=== PATIENT | female | born 1975 | race Caucasian/White ===

== ENCOUNTER 2016-08-17 11:36 | Emergency (ER) | payer OTHER ==
[~2016-08-17] VITALS: Ht 167.6 cm; Wt 68.0 kg
[2016-08-17 12:43] VITALS: BP 103/67
--- NOTE | 2016-08-17 13:42 | PHYS DOC ---
Past Medical History Past Medical History: No Pertinent History Past Surgical History: Cholecystectomy, Tonsillectomy, Tubal ligation, Other Additional Past Surgical Histo: ADENOIDECTOMY, EAR,EYE Alcohol Use: Occasionally Drug Use: None Adult General Chief Complaint Chief Complaint: LOWER BACK PAIN OR INJURY [facility] HPI Patient is a 41 year old female with history of constipation who presents today with mild bilateral mid and low back pain that has been going on for the last 3 days. Patient states she had MiraLAX a couple days ago and had a bowel movement today. Patient states the pain radiates from the lower back to her neck. Patient denies any injuries. Patient denies any loss of bowel bladder function or the pain radiating to bilateral lower extremities. Patient was in the ED on August 09, 2016 with some complain. Review of Systems Review of Systems Constitutional: Denies fever or chills [] Eyes: Denies change in visual acuity, redness, or eye pain [] HENT: Denies nasal congestion or sore throat [] Respiratory: Denies cough or shortness of breath [] Cardiovascular: No additional information not addressed in HPI [] GI: Denies abdominal pain, nausea, vomiting, bloody stools or diarrhea [] : Denies dysuria or hematuria [] Musculoskeletal: back pain Integument: Denies rash or skin lesions [] Neurologic: Denies headache, focal weakness or sensory changes [] Endocrine: Denies polyuria or polydipsia [] Current Medications Current Medications Current Medications Medications (Trade) Dose Ordered Sig/Enzo Start Time Stop Time Status Last Admin Dose Admin Ketorolac Tromethamine (Toradol Im) 60 mg 1X ONCE 08/17/16 14:00 08/17/16 14:03 DC 08/17/16 14:34 60 MG Magnesium Citrate (Citroma) 296 ml 1X ONCE 08/17/16 14:00 08/17/16 14:03 DC 08/17/16 14:33 296 ML Morphine Sulfate 5 mg 1X ONCE 08/17/16 14:00 08/17/16 14:03 DC 08/17/16 14:34 5 MG Orphenadrine Citrate (Norflex) 60 mg 1X ONCE 08/17/16 14:00 08/17/16 14:03 DC 08/17/16 14:33 60 MG Allergies Allergies Allergies Coded Allergies Type Severity Reaction Last Updated Verified No Known Drug Allergies 03/24/15 No Physical Exam Physical Exam Constitutional: Well developed, well nourished, no acute distress, non-toxic appearance. [] HENT: Normocephalic, atraumatic, bilateral external ears normal, oropharynx moist, no oral exudates, nose normal. [] Eyes: PERRLA, EOMI, conjunctiva normal, no discharge. [] Neck: Normal range of motion, no tenderness, supple, no stridor. [] Cardiovascular:Heart rate regular rhythm, no murmur [] Lungs & Thorax: Bilateral breath sounds clear to auscultation [] Abdomen: Bowel sounds normal, soft, no tenderness, no masses, no pulsatile masses. [] Skin: Warm, dry, no erythema, no rash. [] Back: Diffuse tenderness to paraspinal muscles of thoracic and lumbar spine, no midline tenderness, no CVA tenderness. [] Extremities: No tenderness, no cyanosis, no clubbing, ROM intact, no edema. [] Neurologic: Alert and oriented X 3, normal motor function, normal sensory function, no focal deficits noted. [] Psychologic: Affect normal, judgement normal, mood normal. [] Current Patient Data Vital Signs Vital Signs Date Time Temp Pulse Resp B/P Pulse Ox O2 Delivery O2 Flow Rate FiO2 08/17/16 14:34 Room Air 08/17/16 12:43 98.4 84 18 103/67 98 98.4 Lab Values Laboratory Tests Test 08/17/16 12:13 08/17/16 12:55 POC Urine HCG, Qualitative Hcg negative (Negative) Urine Collection Type Unknown Urine Color Yellow Urine Clarity Clear Urine pH 7.0 Urine Specific Duncan 1.010 Urine Protein Negativemg/dL (NEG-TRACE) Urine Glucose (UA) Negativemg/dL (NEG) Urine Ketones (Stick) Negativemg/dL (NEG) Urine Blood Negative (NEG) Urine Nitrite Negative (NEG) Urine Bilirubin Negative (NEG) Urine Urobilinogen Dipstick 0.2mg/dL (0.2 mg/dL) Urine Leukocyte Esterase Negative (NEG) Urine RBC 0/HPF (0-2) Urine WBC Occ/HPF (0-4) Urine Squamous Epithelial Cells Mod/LPF Urine Bacteria Moderate/HPF (0-FEW) EKG EKG [] Radiology/Procedures Radiology/Procedures [] Course & Med Decision Making Course & Med Decision Making Pertinent Labs and Imaging studies reviewed. (See chart for details) Patient is in the ED complaining of low back pain radiating to her neck. Patient denies any known injury. She was in the ED on August 09, 2016 with the same complaint, she was discharged with Medrol Dosepak naproxen and Flexeril. Thoracic and lumbar spine x-rays interpreted by radiologist are negative for any acute findings. Patient was discharged with Ultram and Robaxin. Instructed to take mag citrate and MiraLAX for constipation. Instructed that follow-up with her own doctor in 1-2 weeks. Dragon Disclaimer Dragon Disclaimer This electronic medical record was generated, in whole or in part, using a voice recognition dictation system. Departure Departure Impression: Primary Impression: Lumbago with sciatica, left side Additional Impressions: Thoracic back pain Constipation Disposition: 01 HOME, SELF-CARE Condition: STABLE Referrals: NO PCP (PCP) Follow-up with a doctor from the list provided in one week Patient Instructions: Back Pain, Adult, Constipation, Adult Additional Instructions: You were seen for back pain and constipation. Please use MiraLAX daily to prevent constipation and take magnesium citrate as needed for constipation. Avoid taking narcotics because they increase your risk of constipation. Increase your water intake to 64 ounces a day and fiber intake too. See your doctor in one week. Scripts Tramadol Hcl (Ultram)50 Mg Tablet1 Tab PO Q6HRS #20 TAB Prov:AAKASH HIGGINBOTHAM PAINT GR[employer]ER 08/17/16 Methocarbamol (Robaxin)500 Mg Tablet1 Tab PO BID #20 TAB Prov:AAKASH HIGGINBOTHAM [employer] GR[employer]ER 08/17/16 Problem Qualifiers Additional Impressions: Thoracic back pain Chronicity: acute Back pain laterality: bilateral Qualified Code: M54.6 - Pain in thoracic spine Constipation Constipation type: unspecified constipation type Qualified Code: K59.00 - Constipation, unspecified AAKASH HIGGINBOTHAM [employer] GR[employer]ER Aug 17, 2016 13:42
[2016-08-17 13:44] LABS: BILIRUBIN,URINE NEGATIVE (NEG); GLUCOSE,URINE NEGATIVE (NEG); NITRITE,URINE NEGATIVE (NEG); PROTEIN,URINE NEGATIVE (NEG-TRACE); UROBILINOGEN,URINE 0.2 mg/dL (0.2 mg/dL)
[2016-08-17] MEDS ORDERED: MAGNESIUM CITRATE 296 ML SOLUTION. PO ONE (14:00)
[2016-08-17] MEDS ORDERED: ORPHENADRINE CITRATE 60 MG/2 ML VIAL. IM ONE (14:00)
[2016-08-17] MEDS ORDERED: MORPHINE SULFATE 10 MG/ML VIAL. IM ONE (14:00)
[2016-08-17] MEDS ORDERED: KETOROLAC TROMETHAMINE 60 MG/2 ML SYRINGE. IM ONE (14:00)
[2016-08-17 14:02] LABS: BACTERIA,URINE MODERATE /HPF (0-FEW); RBC,URINE 0 /HPF (0-2); SQUAMOUS EPITHELIAL CELL,UR MOD /LPF; WBC,URINE OCC /HPF (0-4)
--- NOTE | 2016-08-17 14:15 | RAD ---
Lumbar spine, 3 views, 08/17/2016: History: Low back pain The lumbar vertebral heights are well-maintained. No fracture or dislocation is identified. The intervertebral disc spaces are well preserved. There are only minimal scattered marginal spurs. There are mild sclerotic changes involving the facet joints in the lower lumbar spine. The paraspinous soft tissues are unremarkable. IMPRESSION: No acute lumbar spine abnormality is detected. Thoracic spine, 3 views, 08/17/2016: The thoracic vertebral heights are well-maintained. There are several minimal scattered marginal spurs. There is a slight upper thoracic scoliosis. The paraspinous soft tissues are unremarkable. IMPRESSION: 1. Minimal marginal spurring. 2. No acute bony abnormality is detected.
[2016-08-17] MEDS ORDERED: TRAM-29 PO (14:40)
[2016-08-17] MEDS ORDERED: METH-37 PO (14:40)
== END 2016-08-17 15:12 | disposition home or self-care (01) ==
LOC: ER 11:36
DX: M54.42 Lumbago with sciatica, left side (principal); M54.41 Lumbago with sciatica, right side; M54.6 Pain in thoracic spine; K59.00 Constipation, unspecified; Z90.49 Acquired absence of other specified parts of digestive tract
CPT/HCPCS: 72072; 72100; 81001; 81025; 87086; 96372; 99285; J1885; J2270; J2360

== ENCOUNTER 2020-12-03 09:57 | Emergency (ER) | payer OTHER ==
[~2020-12-03] VITALS: Ht 170.2 cm; Wt 70.0 kg
[~2020-12-03 09:57] MED LIST: METH-37 PO; TRAM-48 PO
[2020-12-03 11:57] LABS: BILIRUBIN,URINE NEGATIVE (NEG); CLARITY,URINE CLEAR; COLOR,URINE YELLOW; NITRITE,URINE NEGATIVE (NEG); PROTEIN,URINE NEGATIVE (NEG-TRACE); UROBILINOGEN,URINE 0.2 mg/dL (0.2 mg/dL)
[2020-12-03] MEDS ORDERED: NAPROXEN 500 MG TABLET PO STA (12:00)
[2020-12-03] MEDS ORDERED: HYDROcodone/APAP 5/325MG 1 TAB TABLET PO ONE (12:00)
[2020-12-03] MEDS ORDERED: CYCLOBENZAPRINE 10 MG TABLET. PO ONE (12:00)
--- NOTE | 2020-12-03 12:04 | PHYS DOC ---
Past Medical History Past Medical History: No Pertinent History Past Surgical History: Cholecystectomy, Tonsillectomy, Tubal ligation, Other Additional Past Surgical Histo: ADENOIDECTOMY, EAR,EYE Smoking Status: Former Smoker Alcohol Use: Occasionally Drug Use: None General Adult EDM: Chief Complaint: BACK PAIN OR INJURY HPI: HPI: Patient is a 45 year old female who presents to the ED today complaining of mild intermittent bilateral low back pain that began yesterday while cleaning the mother's house. Patient denies any injuries. Denies any pain radiating to bilateral lower extremities. Describes the pain as sharp and intermittent worse on movements. Denies anything specifically relieving the pain. Requesting to be tested for UTI. Denies any fever, nausea or vomiting. Review of Systems: Review of Systems: Constitutional: Denies fever or chills. [] Eyes: Denies change in visual acuity. [] HENT: Denies nasal congestion or sore throat. [] Respiratory: Denies cough or shortness of breath. [] Cardiovascular: Denies chest pain or edema. [] GI: Denies abdominal pain, nausea, vomiting, bloody stools or diarrhea. [] : Denies dysuria. [] Musculoskeletal: Reports low back pain Integument: Denies rash. [] Neurologic: Denies headache, focal weakness or sensory changes. [] Psychiatric: Denies depression or anxiety. [] Heart Score: C/O Chest Pain: N/A Risk Factors: Risk Factors: DM, Current or recent (<one month) smoker, HTN, HLP, family history of CAD, obesity. Risk Scores: Score 0 - 3: 2.5% MACE over next 6 weeks - Discharge Home Score 4 - 6: 20.3% MACE over next 6 weeks - Admit for Clinical Observation Score 7 - 10: 72.7% MACE over next 6 weeks - Early Invasive Strategies Current Medications: Current Medications Medications (Trade) Dose Ordered Sig/Enzo Start Time Stop Time Status Last Admin Dose Admin Acetaminophen/ Hydrocodone Bitart (Lortab 5/325) 2 tab 1X ONCE 12/03/20 12:12/03/20 12:01 UNV Cyclobenzaprine HCl (Flexeril) 10 mg 1X ONCE 12/03/20 12:00 12/03/20 12:01 UNV Naproxen (Naprosyn) 500 mg 1X STAT 12/03/20 12:00 12/03/20 12:01 UNV Allergies: Allergies: Allergies Coded Allergies Type Severity Reaction Last Updated Verified No Known Drug Allergies 03/24/15 No Physical Exam: PE: Constitutional: Well developed, well nourished, no acute distress, non-toxic appearance. [] HENT: Normocephalic, atraumatic, bilateral external ears normal, oropharynx moist, no oral exudates, nose normal. [] Eyes: PERRLA, EOMI, conjunctiva normal, no discharge. [] Neck: Normal range of motion, no tenderness, supple, no stridor. [] Cardiovascular:Heart rate regular rhythm, no murmur [] Lungs & Thorax: Bilateral breath sounds clear to auscultation [] Abdomen: Bowel sounds normal, soft, no tenderness, no masses, no pulsatile masses. [] Skin: Warm, dry, no erythema, no rash. [] Back: No tenderness, no CVA tenderness. [] Extremities: No tenderness, no cyanosis, no clubbing, ROM intact, no edema. [] Neurologic: Alert and oriented X 3, normal motor function, normal sensory function, no focal deficits noted. [] Psychologic: Affect normal, judgement normal, mood normal. [] Current Patient Data: Labs: Laboratory Tests Test 12/03/20 10:49 POC Urine HCG, Qualitative Hcg negative (Negative) Vital Signs: Vital Signs Date Time Temp Pulse Resp B/P (MAP) Pulse Ox O2 Delivery O2 Flow Rate FiO2 12/03/20 11:27 80 16 104/72 (83) 100 Room Air EKG: EKG: [] Radiology/Procedures: Radiology/Procedures: [] Course & Med Decision Making: Course & Med Decision Making Pertinent Labs and Imaging studies reviewed. (See chart for details) This is a 45-year-old female patient presented to the ED today with bilateral low back pain that began yesterday while cleaning the mother's house. No known injury. No cauda equina syndrome symptoms. She requested UA done, UA is negative. Currently she is on her menstrual cycle. Discharge to home with Flexeril and naproxen as well as Medrol Dosepak. Dragon Disclaimer: Guru Disclaimer: This electronic medical record was generated, in whole or in part, using a voice recognition dictation system. Departure Departure Impression: Primary Impression: Acute lumbosacral myofascial strain Qualified Codes: S39.012A - Strain of muscle, fascia and tendon of lower back, initial encounter Disposition: HOME / SELF CARE / HOMELESS Condition: STABLE Referrals: NAN RAI MD (PCP) follow up in 1-2 weeks Patient Instructions: Lumbosacral Strain Additional Instructions: You were seen for back pain.Take the prescribed medications as ordered. Please follow-up with your primary care doctor in 1 to 2 weeks. Continue using a heating pad as tolerated Scripts Methylprednisolone (MEDROL) 4 Mg Tab.ds.pk 1 PKG PO UD, #1 PKG Prov: AAKASH HIGGINBOTHAM [employer]INEER 12/03/20 Cyclobenzaprine Hcl (CYCLOBENZAPRINE HCL) 10 Mg Tablet 1 TAB PO TID, #30 TAB Prov: AAKASH HIGGINBOTHAM [employer]ER 12/03/20 Methylprednisolone (MEDROL) 4 Mg Tab.ds.pk 1 PKG PO UD, #1 PKG Prov: AAKASH HIGGINBOTHAM [employer]ER 12/03/20 AAKASH HIGGINBOTHAM [employer] ENGINEER Dec 03, 2020 12:04
[2020-12-03 12:05] LABS: BACTERIA,URINE 0 /HPF (0-FEW); RBC,URINE TNTC /HPF (0-2)
[2020-12-03] MEDS ORDERED: METH4TAB2 PO (13:12)
[2020-12-03] MEDS ORDERED: CYCL10TA2 PO (13:12)
[2020-12-03 13:25] VITALS: BP 111/66
== END 2020-12-03 13:26 | disposition home or self-care (01) ==
LOC: ER 09:57
DX: S39.012A Strain of muscle, fascia and tendon of lower back, initial encounter (principal); Z87.891 Personal history of nicotine dependence; Z90.49 Acquired absence of other specified parts of digestive tract; Z98.51 Tubal ligation status; X50.9XXA Other and unspecified overexertion or strenuous movements or postures, initial encounter; Y93.89 Activity, other specified; Y92.89 Other specified places as the place of occurrence of the external cause; Y99.8 Other external cause status
CPT/HCPCS: 81001; 81025; 99283